=== PATIENT | female | born 1935 | race Caucasian/White ===

== ENCOUNTER → 2021-03-09 | Outpatient (CLI) | payer MEDICARE, OTHER ==
[~2021-03-09] MED LIST: ADV1DS INH; APIX5TAB2 PO; ASPI-875 PO; ATOR10TA66 PO; ATRV10T; ATRV10T PO; CA C1TAB26 PO; CALC-656 PO; CALC-80 PO; CALCIUM; CHOL10003 PO; FEXO-104 PO; FEXO-45 PO; FEXO180T; FEXO60CA19 PO; FLUT1DIS26 INH; GLUC1000 PO; GLUC100016 PO; GLUC10002 PO; HYDR1TAB PO; HYZAAR; LOSA1TAB3; METO-272 PO; METO25TA PO; MTF500T; MULT1TAB63 PO; NF-ESOM40C PO; PARO10TA2 PO; PATANOL; PRD10T
--- NOTE | 2021-03-09 12:39 | Diagnostic Imaging Report ---
PROCEDURE: US Non-ob pelvis comp/trans. TECHNIQUE: Multiple realtime grayscale images were obtained of the pelvis in various projections endovaginally. Transabdominal imaging was also performed. INDICATION: Left ovarian cyst. COMPARISON: Pelvic ultrasound from 11/20/2009. FINDINGS: The uterus measures 6.9 x 2.6 x 3.4 cm. Endometrium measures approximately 0.2 cm in thickness. No discrete myometrial mass although there is some heterogeneous echogenicity present which could be areas of calcification within the myometrium. No vascularity within the endometrium. Both adnexa are imaged, but the ovaries are not identified. There is no concerning adnexal mass on either side. No free pelvic fluid. IMPRESSION: 1. Ovaries are not seen due to surrounding bowel gas on transabdominal or transvaginal imaging. No concerning adnexal mass. 2. Heterogeneous echogenicity of the myometrium may be due to areas of calcification, but there are no discrete masses within the uterus. Dictated by: Dictated on workstation # [id number]
== END ==
LOC: RAD 10:00
PROVIDERS: ATTEND Surgery
DX: N83.202 Unspecified ovarian cyst, left side (principal)
CPT/HCPCS: 76830; 76856

== ENCOUNTER → 2021-03-18 | Outpatient (CLI) | payer MEDICARE, OTHER ==
[~2021-03-18] MED LIST changes: +CATHETER FLUSH 10 ML SYR IV PRN
--- NOTE | 2021-03-18 12:10 | Diagnostic Imaging Report ---
RADIOPHARMACEUTICAL: 4.10 mCi Tc-99m Choletec IV INDICATION: Abdominal pain. COMPARISON: None available. TECHNIQUE: Anterior dynamic imaging for 1 hour. Additional 60 minutes of imaging was obtained after the patient drank an 8 ounce can of ensure. FINDINGS: There is homogenous uptake throughout the liver. The gallbladder is visualized at 20 minutes and small bowel at 65 minutes. After ingesting an 8 ounce can of ensure, there is normal contraction of the gallbladder with normal calculated GBEF at 67%. IMPRESSION: 1. Normal HIDA Scan without evidence of cystic or common duct obstruction. 2. Normal GBEF of 67%. Dictated by: Dictated on workstation # [id number]
== END ==
LOC: CARD 10:00
PROVIDERS: ATTEND Surgery
DX: N83.202 Unspecified ovarian cyst, left side (principal)
CPT/HCPCS: 78227; A9537

== ENCOUNTER 2021-04-22 12:43 | Outpatient (CLI) | payer MEDICARE, OTHER ==
[~2021-04-22] VITALS: Ht 157.5 cm; Wt 71.2 kg
[~2021-04-22 12:43] MED LIST changes: -CATHETER FLUSH 10 ML SYR IV PRN
[2021-04-23] MEDS ORDERED: TACR30OI5 TP (12:45)
== END 2021-04-23 13:47 | disposition home or self-care (01) ==
LOC: PREOP 12:43
PROVIDERS: ATTEND Surgery
DX: Z01.818 Encounter for other preprocedural examination (principal)

== ENCOUNTER 2021-04-28 10:52 | Day surgery (SDC) | payer MEDICARE, OTHER ==
[~2021-04-28] VITALS: Ht 157.5 cm; Wt 71.2 kg
[~2021-04-28 10:52] MED LIST changes: +TACR30OI5 TP
[2021-04-28] MEDS ORDERED: LACTATED RINGERS 1,000 ML IV STA (11:03)
[2021-04-28] MEDS ORDERED: LACTATED RINGERS 1,000 ML IV ONE (11:04)
[2021-04-28 11:15] VITALS: BP 173/96
[2021-04-28] MEDS ORDERED: LIDOCAINE JELLY 2% 6 ML SYRINGE MM PRN (11:15)
--- NOTE | 2021-04-28 12:12 | Progress Note-Pre Operative ---
Pre-Operative Progress Note H&P Reviewed The H&P was reviewed, patient examined and no changes noted. Date Seen by Provider: Apr 28, 2021 Time Seen by Provider: 12:00 Date H&P Reviewed: Apr 28, 2021 Time H&P Reviewed: 12:00 Pre-Operative Diagnosis: abd bloating and crampy pain ELIEL HOLLIS MD Apr 28, 2021 12:12
--- NOTE | 2021-04-28 12:13 | Discharge Inst-Surgical ---
D/C Lap Instructions-TELMA Follow Up Appt in 2 weeks Activity as tolerated High Fiber Diet 25g or more per day Avoid Alcohol, Caffeine, Spicy [place] and Acid foods. Drink 64 fluid oz or more of fluids per day. Symptoms to Report: Fever over 101 degree F, Nausea/Vomiting If any problems/questions: Contact your physician or go to Emergency Room ELIEL HOLLIS MD Apr 28, 2021 12:13
[2021-04-28] MEDS ORDERED: ONDANSETRON 4 MG (ZOFRAN) ORAL DISSOLVE TAB PO PRN (12:15)
[2021-04-28] MEDS ORDERED: ONDANSETRON 4 MG/2 ML (SDV) Z0FRAN IVP PRN (12:15)
[2021-04-28] MEDS ORDERED: PROPOFOL INJECTION 50 ML IV ONE (12:50)
[2021-04-28 13:35] VITALS: BP 127/67
[2021-04-28 13:40] VITALS: BP_SYST 125; BP_SYST 132; BP_DIAS 64; BP_DIAS 66
--- NOTE | 2021-04-28 13:40 | Anesthesia-General Post-Op ---
MAC Patient Condition Mental Status/LOC: Same as Preop Cardiovascular: Satisfactory Nausea/Vomiting: Absent Respiratory: Satisfactory Pain: Controlled Complications: Absent Post Op Complications Complications None Follow Up Care/Instructions Patient Instructions None needed. Anesthesiology Discharge Order Discharge Order Patient is doing well, no complaints, stable vital signs, no apparent adverse anesthesia problems. No complications reported per nursing. BERNICE WASHBURN CRNA Apr 28, 2021 13:40
--- NOTE | 2021-04-28 13:57 | Progress Note-Post Operative ---
Post-Operative Progess Note Surgeon (s)/Matte Cutter (s) Surgeon ELIEL HOLLIS MD Matte Cutter: none Pre-Operative Diagnosis abd bloating and crampy pain Post-Operative Diagnosis chronic stage 2 ext and int hemorrhoids, moderate sigmoid diverticulosis, mild cecal inflammation. Procedure & Operative Findings Date of Procedure 04/28/21 Procedure Performed/Findings colonoscopy with bx. Anesthesia Type mac Estimated Blood Loss Estimated blood loss (mL): minimal Specimens/Packing Specimens Removed cecum ELIEL HOLLIS MD Apr 28, 2021 13:57
[2021-04-28 14:05] VITALS: BP 181/82
[2021-04-28 14:06] VITALS: BP 181/82
--- NOTE | 2021-04-28 18:51 | OPERATIVE REPORT ---
DATE OF SERVICE: 04/28/2021 ATTENDING PRIMARY CARE PHYSICIAN: Orion Yun DO PREOPERATIVE DIAGNOSIS: Abdominal bloating. POSTOPERATIVE DIAGNOSES: Chronic stage II external and internal hemorrhoids, mild inflammation near the cecum. PROCEDURES PERFORMED: Colonoscopy with biopsy. SURGEON: Eliel Tang MD. ANESTHESIA: Monitored anesthesia care. ESTIMATED BLOOD LOSS: Minimal. FINDINGS: Chronic stage II external and internal hemorrhoids, mild inflammation near the cecum. DISPOSITION: The patient tolerated the procedure well. INDICATIONS FOR PROCEDURE: The patient is an 85-year-old female, who reports that she has had intermittent episodes of abdominal bloating and pain, which she states is more in the left lower abdominal quadrant. She has a known history of diverticulosis. She does not report any major issues with diarrhea nor constipation as well as no red blood per rectum nor any dark tarry stools. She has had previous gallbladder workup; however, this has been negative. However, this was a good amount of time ago. DESCRIPTION OF PROCEDURE: The patient was brought to the endoscopy suite and laid in the left lateral decubitus position. After adequate IV pain and sedative medications and monitored anesthesia care, a digital rectal examination was performed. Chronic stage II external and internal hemorrhoids were identified, which were not actively edematous nor inflamed and no bleeding. Normal sphincter tone was felt and there were no palpable masses. The endoscope was then intubated and the anus and rectum gently insufflated. The endoscope was then advanced through the valves of Jimenez of the rectum with no polyps or any neoplasms identified. We then proceeded through the sigmoid colon, where a moderate sigmoid diverticulosis identified. There were no mucosal inflammatory changes to indicate any active diverticulitis. The endoscope was then advanced to the remainder of the descending, transverse and ascending colon to the cecum. At the level of the cecum, there appeared to be a mild mucosal inflammation, which could be nonspecific. Multiple biopsies were taken of the cecum with forceps with visualization of good hemostasis. The endoscope was then slowly withdrawn while taking a second look and suctioning of residual air with no additional findings. The patient tolerated the procedure well. We will await the biopsy results; however, have her continue with medical management with a high fiber diet with at least 25 grams of fiber a day as well as significant amounts of water to promote soft stools on a daily basis. We will have her follow up in the office in approximately 2 weeks. Job ID: [id number] DocumentID: [id number] Dictated Date: 04/28/2021 13:44:43 Rfid Developer Date: 04/28/2021 18:49:42 Dictated By: ELIEL TANG MD MTDD
== END 2021-04-28 14:11 | disposition home or self-care (01) ==
LOC: ENDO 10:52
PROVIDERS: ATTEND Surgery
DX: K52.9 Noninfective gastroenteritis and colitis, unspecified (principal); K63.89 Other specified diseases of intestine; K64.1 Second degree hemorrhoids; K64.4 Residual hemorrhoidal skin tags; K21.9 Gastro-esophageal reflux disease without esophagitis; I10 Essential (primary) hypertension; E78.5 Hyperlipidemia, unspecified; E11.9 Type 2 diabetes mellitus without complications; J45.909 Unspecified asthma, uncomplicated; Z90.89 Acquired absence of other organs; Z79.82 Long term (current) use of aspirin; Z79.899 Other long term (current) drug therapy
CPT/HCPCS: 82947; 88305